=== PATIENT | female | born 1990 | race Caucasian/White ===

== ENCOUNTER 2019-03-24 10:28 | Emergency (ER) | payer MEDICAID ==
[2019-03-24] MEDS ORDERED: KETOROLAC TROMETHAMINE INJ/PF 30 MG/1 ML SDV IV ONE (11:02)
[2019-03-24] MEDS ORDERED: PROCHLORPERAZINE EDISYLATE INJ 10 MG/2 ML VIAL IV ONE (11:02)
[2019-03-24] MEDS ORDERED: DIPHENHYDRAMINE HCL 50 MG/ML VIAL IV ONE (11:02)
[2019-03-24] MEDS ORDERED: NORMAL SALINE 500 ML IV ONE ×2 (11:06→12:23)
--- NOTE | 2019-03-24 11:06 | ER Document Report ---
ED Medical Screen (RME) - General Chief Complaint: Neck Pain >24hrs old Stated Complaint: NECK PAIN, HEADACHE Time Seen by Provider: 03/24/19 11:00 TRAVEL OUTSIDE OF THE [place] IN LAST 30 DAYS: No - HPI Notes: 03/24/19 11:04 Patient is a 28-year-old female with a history of migraine headaches who presents complaining of a left-sided headache and left-sided neck pain since this past Friday this been relatively constant. Patient states that it is worse with movement. This is not the worst headache of her life and did not start as a thunderclap. Denies drug allergies. She will have some occasional light sensitivities. She is able to eat and drink without difficulty. No fever. No chest pain or shortness of breath. I have treated and performed a rapid initial assessment of this patient. A c omprehensive ED assessment and evaluation of the patient, analysis of test results and completion of medical decision making process will be conducted by additional ED providers. PHYSICAL EXAMINATION: GENERAL: Well-appearing, well-nourished and in no acute distress. A&Ox4. Answers questions appropriately. Eyes: PERRLA, EOMI bilaterally. Neuro: Cranial nerves grossly intact, NIH 0, GCS 15. Neck: There is reproducible tenderness palpation of left cervical paraspinal muscle/left trapezius muscle and near the occipital nerve bundle (left side). - Related Data Allergies/Adverse Reactions: No Known Allergies Allergy (Verified 03/24/19 10:51) Past Medical History - Social History Frequency of alcohol use: None Drug Abuse: None Neurological Medical History: Reports: Hx Migraine Past Surgical History: Reports: Hx Gynecologic Surgery - d/c Physical Exam - Vital signs Vitals: Temp Pulse Resp BP Pulse Ox 98.1 F 69 20 141/73 H 100 03/24/19 10:43 03/24/19 10:43 03/24/19 10:43 03/24/19 10:43 03/24/19 10:43 Course - Vital Signs Vital signs: Temp Pulse Resp BP Pulse Ox 98.1 F 69 20 141/73 H 100 03/24/19 10:43 03/24/19 10:43 03/24/19 10:43 03/24/19 10:43 03/24/19 10:43
[2019-03-24] MEDS ORDERED: CYCLOBENZAPRINE HCL 10 MG TABLET PO ONE (12:23)
--- NOTE | 2019-03-24 13:34 | ER Document Report ---
ED General - General Chief Complaint: Neck Pain >24hrs old Stated Complaint: NECK PAIN, HEADACHE Time Seen by Provider: 03/24/19 11:00 Primary Care Provider: SANDY RODRÍGUEZ MD [ACTIVE STAFF] - Follow up in 3-5 days Notes: 28-year-old female presents with left-sided headache and left-sided neck pain since Friday. Patient states it is worse with movement. Patient denies any specific injury or fever. Patient has a history of migraines and states that headache feels similar to that. Patient denies this being the worst headache of her life or thunderclap clap in presentation. TRAVEL OUTSIDE OF THE [place] IN LAST 30 DAYS: No - Related Data Allergies/Adverse Reactions: No Known Allergies Allergy (Verified 03/24/19 10:51) Past Medical History - General Information source: Patient - Social History Smoking Status: Former Smoker Frequency of alcohol use: None Drug Abuse: None Family History: None Patient has suicidal ideation: No Patient has homicidal ideation: No Neurological Medical History: Reports: Hx Migraine Past Surgical History: Reports: Hx Gynecologic Surgery - d/c Review of Systems - Review of Systems Notes: Constitutional: Negative for fever. HENT: Positive for neck pain. Negative for sore throat. Eyes: Negative for visual changes. Cardiovascular: Negative for chest pain. Respiratory: Negative for shortness of breath. Gastrointestinal: Negative for abdominal pain, vomiting or diarrhea. Genitourinary: Negative for dysuria. Musculoskeletal: Negative for back pain. Skin: Negative for rash. Neurological: Positive for headaches. Negative for weakness or numbness. 10 point ROS negative except as marked above and in HPI. Physical Exam - Vital signs Vitals: Temp Pulse Resp BP Pulse Ox 98.1 F 69 20 141/73 H 100 03/24/19 10:43 03/24/19 10:43 03/24/19 10:43 03/24/19 10:43 03/24/19 10:43 - Notes Notes: GENERAL: Well-appearing, well-nourished and in no acute distress. HEAD: Atraumatic, normocephalic. EYES: Pupils equal round and reactive to light, extraocular movements intact, sclera anicteric, conjunctiva are normal. NECK: Normal range of motion, supple without lymphadenopathy or JVD. Tenderness to left cervical paraspinal muscles and left upper trapezius. Brudzinski negative. No signs of meningismus. ABDOMEN: Soft, nontender, normoactive bowel sounds. No guarding, no rebound. No masses appreciated. EXTREMITIES: Normal range of motion, no pitting or edema. No clubbing or cyanosis. NEUROLOGICAL: Cranial nerves II through XII grossly intact. Normal speech, normal gait. PSYCH: Normal mood, normal affect. SKIN: Warm, Dry, normal turgor, no rashes or lesions noted. Course - Re-evaluation Re-evalutation: 03/24/19 well-appearing, nontoxic 28-year-old female presents for headache and neck pain. Examination is consistent with muscle spasm/muscle strain of left upper trapezius/left cervical paraspinal muscles. Patient is able to flex and extend and move neck without difficulty. Patient has reproduction of pain upon movement. Brudzinski negative. Headache was not maximal in onset, patient has no focal neurologic deficits, no nuchal rigidity, vital signs within normal limits, no papilledema, and patient is overall well in appearance. Based on clinical history and examination I do not suspect an acute subarachnoid hemorrhage, dural venous sinus thrombosis, acute meningitis, or intercranial mass. Given my low clinical suspicion for any acute life-threatening etiology, I do not feel advanced neuro imaging or laboratory testing is indicated at this time. Will proceed with headache cocktail and muscle relaxer for neck pain and reassess. 03/24/19 13:54 Pt is feeling better and would like to go home. - Vital Signs Vital signs: Temp Pulse Resp BP Pulse Ox 98.1 F 89 15 153/98 H 99 03/24/19 14:04 03/24/19 14:04 03/24/19 14:04 03/24/19 14:04 03/24/19 14:04 Discharge - Discharge Clinical Impression: Neck muscle spasm Headache Qualifiers: Headache type: unspecified Headache chronicity pattern: acute headache Intractability: not intractable Qualified Code(s): R51 - Headache Condition: Stable Disposition: HOME, SELF-CARE Instructions: Muscle Relaxers ([facility]) Additional Instructions: Please take medicines as prescribed. Do not drink or drive while taking Flexeril as it will make you sleepy. Please use heat to the area as discussed. Follow-up with your primary care doctor in 3 to 5 days. Return to ER for any worsening symptoms, including fever, worsening neck pain, inability to flex neck, nausea/vomiting, abdominal pain, shortness of breath, chest pain, or any other symptoms that are concerning to you. Prescriptions: Cyclobenzaprine HCl [Flexeril 10 mg Tablet] 10 mg PO TIDP PRN #15 tab PRN Reason: Forms: Return to Work Referrals: SANDY RODRÍGUEZ MD [ACTIVE STAFF] - Follow up in 3-5 days
[2019-03-24 14:06] VITALS: BP 153/98
== END 2019-03-24 14:04 | disposition home or self-care (01) ==
LOC: ER 10:28
DX: M62.838 Other muscle spasm (principal); R51 Headache; M54.2 Cervicalgia
CPT/HCPCS: 99283; 96361; 96374; 96375; J3490; J1200; J1885; J0780; J7040

== ENCOUNTER 2020-03-06 11:33 | Emergency (ER) | payer MEDICAID ==
--- NOTE | 2020-03-06 12:06 | ER Document Report ---
ED Medical Screen (RME) - General Chief Complaint: Chest Pain Stated Complaint: CHEST PAIN Time Seen by Provider: 03/06/20 11:59 Notes: Patient is a 29-year-old female who presents emergency department with a chief complaint of chest pain. Patient states that it is in the middle of her chest. Her pain started this morning. Patient did have some shortness of breath yesterday. Patient is a current everyday smoker and she takes control. Exam: Sinus rhythm on twelve-lead EKG. I have greeted and performed a rapid initial assessment of this patient. A comprehensive ED assessment and evaluation of the patient, analysis of test resu lts and completion of medical decision making process will be conducted by an additional ED providers. TRAVEL OUTSIDE OF THE [place] IN LAST 30 DAYS: No - Related Data Allergies/Adverse Reactions: No Known Allergies Allergy (Verified 03/24/19 10:51) Past Medical History - Social History Frequency of alcohol use: Social Drug Abuse: Marijuana Neurological Medical History: Reports: Hx Migraine Past Surgical History: Reports: Hx Gynecologic Surgery - d/c Physical Exam - Vital signs Vitals: Temp Pulse Resp BP Pulse Ox 97.9 F 98 22 H 145/97 H 100 03/06/20 11:47 03/06/20 11:47 03/06/20 11:47 03/06/20 11:47 03/06/20 11:47 Course - Vital Signs Vital signs: Temp Pulse Resp BP Pulse Ox 97.9 F 98 22 H 145/97 H 100 03/06/20 11:47 03/06/20 11:47 03/06/20 11:47 03/06/20 11:47 03/06/20 11:47
[2020-03-06 13:02] LABS: ABSOLUTE EOSINOPHILS # (AUTO) 0.1 10^3/uL (0.0-0.6); ABSOLUTE MONOCYTES (AUTO) 0.6 10^3/uL (0.1-1.4); ABSOLUTE NEUT (AUTO) 5.2 10^3/uL (1.7-8.2); BASOPHILS % (AUTO) 0.3 % (0-2); HEMATOCRIT 40.2 % (36.0-47.0); HEMOGLOBIN 13.9 g/dL (12.0-15.5); LYMPHOCYTES % (AUTO) 25.5 % (13-45); MEAN CORPUSCULAR HEMOGLOBIN 31.3 pg (27.0-33.4); MEAN CORPUSCULAR HGB CONC 34.7 g/dL (32.0-36.0); MEAN CORPUSCULAR VOLUME 90 fl (80-97); MONOCYTES % (AUTO) 7.8 % (3-13); PLATELET COUNT 273 10^3/uL (150-450); RED BLOOD COUNT 4.45 10^6/uL (3.72-5.28); RED CELL DISTRIBUTION WIDTH 12.6 % (11.5-14.0); SEGMENTED NEUTROPHILS % (AUTO) 65.4 % (42-78); TOTAL CELLS COUNTED % (AUTO) 100 %; WHITE BLOOD COUNT 7.9 10^3/uL (4.0-10.5)
[2020-03-06 13:19] LABS: ALBUMIN 4.5 g/dL (3.5-5.0); ALKALINE PHOSPHATASE 87 U/L (38-126); ANION GAP 7 (5-19); ASPARTATE AMINO TRANSFERASE 24 U/L (14-36); BILIRUBIN,DIRECT 0.1 mg/dL (0.0-0.4); BILIRUBIN,TOTAL 0.5 mg/dL (0.2-1.3); BLOOD UREA NITROGEN 15 mg/dL (7-20); CALCIUM 10.2 mg/dL (8.4-10.2); CARBON DIOXIDE 30 mmol/L (22-30); CHLORIDE 103 mmol/L (98-107); CREATINE KINASE 74 U/L (30-135); GLUCOSE 75 mg/dL (75-110); POTASSIUM 4.2 mmol/L (3.6-5.0); TOTAL PROTEIN 7.9 g/dL (6.3-8.2)
--- NOTE | 2020-03-06 14:42 | RADIOLOGY REPORT (SQ) ---
EXAM DESCRIPTION: CHEST SINGLE VIEW IMAGES COMPLETED DATE/TIME: 03/06/2020 2:19 pm REASON FOR STUDY: chest pain COMPARISON: None. EXAM PARAMETERS: NUMBER OF VIEWS: One view. TECHNIQUE: An AP view of the chest was obtained. RADIATION DOSE: NA LIMITATIONS: None. FINDINGS: LUNGS AND PLEURA: No consolidation, pleural effusion or pneumothorax. MEDIASTINUM AND HILAR STRUCTURES: No mediastinal or hilar contour abnormality. HEART AND VASCULAR STRUCTURES: The cardiac silhouette and pulmonary vasculature are within normal hart its. BONES: No acute findings. HARDWARE: None in the chest. OTHER: No other finding. IMPRESSION: No acute cardiopulmonary process. TECHNICAL DOCUMENTATION: JOB ID: [id number] 2010 [employer]- All Rights Reserved Reading location - IP/workstation name: [email or web address]
[2020-03-06 15:47] LABS: APPEARANCE,URINE CLEAR; BILIRUBIN,URINE NEGATIVE (NEGATIVE); COLOR,URINE YELLOW; GLUCOSE, URINE NEGATIVE (NEGATIVE); KETONES,URINE NEGATIVE (NEGATIVE); LEUKOCYTE ESTERASE,URINE NEGATIVE (NEGATIVE); NITRITE,URINE NEGATIVE (NEGATIVE); PROTEIN,URINE NEGATIVE (NEGATIVE); URINE SPECIFIC GRAVITY 1.024; UROBILINOGEN,URINE NEGATIVE mg/dL (<2.0)
--- NOTE | 2020-03-06 16:29 | ER Document Report ---
ED General - General Chief Complaint: Chest Pain Stated Complaint: CHEST PAIN Time Seen by Provider: 03/06/20 11:59 Primary Care Provider: LOVE AUSTIN PA-C [Primary Care Provider] - Follow up as needed JAGDEEP BARRAGAN MD [ACTIVE STAFF] - Follow up as needed TRAVEL OUTSIDE OF THE [place] IN LAST 30 DAYS: No - HPI Notes: Chief Complaint: Chest pain Historian: History obtained from patient HPI: This is a 29-year-old female presents to the ED complaining of chest pain, shortness of breath, palpitations that occurred yesterday. Patient says she was cleaning up after her dog and walking back into her house when she developed mid chest tightness, racing heart, shortness of breath. She says her vision got blurry and she felt lightheaded like she might pass out but she did not. The symptoms lasted just for a couple minutes. Patient similar symptoms this morning but much less severe and did a smart phone re heart monitor that recorded her pulse at 137. She denies any cardiac history. She denies pleuritic pain, hemoptysis, fever, cough, nausea vomiting or leg swelling, PE or DVT history. Patient does take oral control but otherwise has no other DVT or PE risk factors. Known family history of premature cardiac disease. No treatments tried. She does have a history of anxiety for which she takes an SSRI which she has been on for 7 months without dose changes. ROS: Constitutional: no fevers. HEENT: no KOLB, sore throat, or vision changes. CV: palpitations, chest tightness Resp: sob GI: no abdominal pain, or n/v/d. : no dysuria, hematuria, or incont. MSK: no back pain, no joint swelling/redness. Skin: no rashes or itching. Neuro: no seizures, weakness, numbness, or confusion. Hematological: no ecchymosis or easy bleeding. Endocrine: no polyuria/polydipsia, no heat/cold intolerance. Psych: no SI/HI, AH/VH or memory loss. PMHx: Reviewed and agree as charted by RN. PSHx: Reviewed and agree as charted by RN. SOCHx: Reviewed and agree as charted by RN. FHX: No significant familial comorbid conditions directly related to patient complaint Current Medications: Reviewed and agree with the patient medications as charted by the RN. Allergies: Reviewed and agree with the listed allergies as charted by the RN Physical Exam: Vitals: Reviewed in chart as documented by RN. General: Alert and in NAD. Head: Normocephalic; atraumatic Eyes: PERRLA, Conjunctivae clear sclerae non-icteric bilat ENT: no soft palate swelling or uvular deviation Neck: trachea midline, no unilateral swelling/tenderness/lymphadenopathy CV: RRR, no M/R/G; symmetric distal pulses Resp: respirations even and unlabored, CTA bilat. GI: abd soft and nondistended. NTTP. normal BS. no masses/HSM. no CVAT bilat MSK: FROM of all extremities. No midline CTL spine tenderness/deformity Skin: warm, moist, good turgor. no rash/lesions Neuro: Alert and oriented X 4. following CN 2-12 intact. no unilateral weakness/numbness Psych: No SI/HI or AH/VH. ED Results: Medical Decision-Making: Medical Decision-making/Differential Diagnosis: Consider various etiologies including but not limited to cardiac dysrhythmia, anemia, electrolyte abnormality, dehydration, URI, Acute Decompensated congestive heart failure, Acute Exacerbation of Chronic Obstructive Pulmonary Disease, Acute coronary syndromes, pulmonary and pleural based diseases/process, Pulmonary Embolism (low probability based on history & physical, wells criteria and/or PERC rule), infection, metabolic derangement Atypical chest pain, Chest wall pain, Arteriosclerotic cardiovascular disease plan for laboratory evaluation including Labs, urine, xray, ECG, youth nutritional monitor, cont pulse oximetry. Well's PE score is 0. pts d-dimer is 0.29. PE unlikely. CXR negative labs overall reassuring, pending UA and preg test. ECG - NSR- rate 93. normal axis. S1Q3T3 noted. no FINN/STD. no prior ECG to evaluate. reviewed by ER physician Pts symptoms could be related to anxiety/panic attack vs other tachycardia. Pt remained in NSR w/ normal rate her entire ED course. I will refer her to cardiology for f/u for possible holter/event monitor if she continues to have similar episodes. This course of action was discussed with the patient and/or family. They were amenable to this, verbalized understanding, and were without further questions - Related Data Allergies/Adverse Reactions: No Known Allergies Allergy (Verified 03/24/19 10:51) Past Medical History - Social History Smoking Status: Current Every Day Smoker Frequency of alcohol use: Social Drug Abuse: Marijuana Family History: None Neurological Medical History: Reports: Hx Migraine Past Surgical History: Reports: Hx Gynecologic Surgery - d/c Physical Exam - Vital signs Vitals: Temp Pulse Resp BP Pulse Ox 97.9 F 98 22 H 145/97 H 100 03/06/20 11:47 03/06/20 11:47 03/06/20 11:47 03/06/20 11:47 03/06/20 11:47 Course - Re-evaluation Re-evalutation: 03/06/20 16:32 Patient's pulse has remained in the 80s and 90s entire time she has been in the ER O2 sats 100% on room air. No concerns for ACS or PE at this time. Refer to cardiology for follow-up. Strict return factors were discussed. - Vital Signs Vital signs: Temp Pulse Resp BP Pulse Ox 97.9 F 98 20 125/90 H 100 03/06/20 11:47 03/06/20 11:47 03/06/20 15:01 03/06/20 15:00 03/06/20 15:01 - Laboratory Results Result Diagrams: 03/06/20 12:16 03/06/20 12:16 Critical Laboratory Results Reviewed: No Critical Results - Radiology Results Critical Radiology Results Reviewed: No Critical Results - EKG Interpretation by Me EKG shows normal: Sinus rhythm Rate: Normal Rhythm: NSR Conway/QRS: No: Right axis deviation, Left axis deviation, RBBB, LBBB, IVCD, LAHB/LAFB, LPHB/LPFB, Bifasicular block P Waves: No: LAURO, LAE, Absent, AV Dissociation, Other Heart block present: No: 1st Degree, Mobitz 1, Mobitz 2, CHB (3rd degree block) When compared to previous EKG there are: Previous EKG unavailable Additional EKG results interpreted by me: 03/06/20 16:31 T wave inversion in lead AVF. S1Q3T3. ECG reviewed by ER physician Discharge - Discharge Clinical Impression: Intermittent palpitations Chest pain Qualifiers: Chest pain type: other chest pain Qualified Code(s): R07.89 - Other chest pain Condition: Stable Disposition: HOME, SELF-CARE Instructions: Palpitations (Irregular or Rapid Heartrate) ([facility]) Additional Instructions: Call to schedule an appointment with cardiology (Dr. Barragan) for follow up. drink plenty of fluids. Follow printed instructions. return to the ER if your condition worsens. Referrals: LOVE AUSTIN PA-C [Primary Care Provider] - Follow up as needed JAGDEEP BARRAGAN MD [ACTIVE STAFF] - Follow up as needed
[2020-03-06 17:12] VITALS: BP 144/94
--- NOTE | 2020-03-06 19:08 | EKG REPORT ---
SEVERITY:- BORDERLINE ECG - SINUS RHYTHM BORDERLINE T ABNORMALITIES, INFERIOR LEADS : Confirmed by: Karyn Garcia MD 06-Mar-2020 19:07:46
== END 2020-03-06 17:12 | disposition home or self-care (01) ==
LOC: ER 11:33
DX: R07.89 Other chest pain (principal); R00.2 Palpitations; F17.200 Nicotine dependence, unspecified, uncomplicated; R06.02 Shortness of breath; F12.10 Cannabis abuse, uncomplicated; H53.8 Other visual disturbances; R42 Dizziness and giddiness; F41.9 Anxiety disorder, unspecified; Z79.899 Other long term (current) drug therapy; Z79.3 Long term (current) use of hormonal contraceptives; Z82.49 Family history of ischemic heart disease and other diseases of the circulatory system
CPT/HCPCS: 36415; 71045; 80053; 81001; 81025; 82550; 83735; 84484; 85025; 85379; 93005; 93010; 99285